=== PATIENT | female | born 1980 | race American Indian/Alaskan Native ===

== ENCOUNTER 2019-05-08 17:05 | Emergency (ER) | payer SELFPAY ==
[2019-05-08] MEDS ORDERED: methylPREDNISolone Sod Succinate 125 MG/2 ML INJ IV ONE (18:09)
[2019-05-08] MEDS ORDERED: SODIUM CHLORIDE 0.9% 1000 ML 1,000 ML IV ONE (18:09)
[2019-05-08] MEDS ORDERED: IPRATROPIUM 0.02% NEBU 2.5 ML IH ONE ×2 (18:09→20:31)
[2019-05-08] MEDS ORDERED: ALBUTEROL 2.5 MG/3 ML NEBU IH ONE ×2 (18:09→20:31)
[2019-05-08 18:39] LABS: Basophils # (Auto) 0.2 K/mm3 (0.0-0.1); Basophils % (Auto) 1.1 % (0.0-1.8); Eosinophils # (Auto) 1.4 K/mm3 (0.0-0.4); Eosinophils % (Auto) 10.5 % (0.0-4.3); Hemoglobin 12.9 gm/dl (10.1-14.3); Lymphocytes % (Auto) 14.9 % (13.4-35.0); Mean Corpuscular HGB Conc 32 % (30-34); Monocytes # (Auto) 0.9 K/mm3 (0.0-0.8); Monocytes % (Auto) 6.7 % (0.0-7.3); Platelet Count 304 K/mm3 (140-440); Red Blood Count 6.12 M/mm3 (3.65-5.03); Red Cell Distribution Width 19.2 % (13.2-15.2)
[2019-05-08 18:46] LABS: Mean Corpuscular Volume 67 fl (79-97)
[2019-05-08 18:49] LABS: BUN/Creatinine Ratio 12; Blood Urea Nitrogen 11 mg/dL (7-17); Calcium 9.2 mg/dL (8.4-10.2); Hemolysis Index 23
[2019-05-08] MEDS ORDERED: hydroCHLOROthiazide 25 MG TAB PO ONE (21:01)
[2019-05-08] MEDS ORDERED: amLODIPine 5 MG TAB PO ONE (21:01)
[2019-05-08] MEDS ORDERED: amLODIPine 10 MG TAB ONE (21:06)
--- NOTE | 2019-05-08 22:54 | Emergency Department Report ---
ED General Adult HPI - General Chief complaint: Syncope Stated complaint: FELIPE,SINUS PRESSURE AND FAINTED Time Seen by Provider: 05/08/19 17:44 Source: patient Mode of arrival: Ambulatory Limitations: No Limitations - History of Present Illness Initial comments: Patient is a 38] female who has had some increased cough the last week. Cough is nonproductive. Patient does have a history of asthma and hypertension. Patient states she ran out of her desonide but does not rub or how long she's been out of it. She has been taking albuterol nebs at home. Patient states that she was coughing so hard today she lost consciousness and hit her head. Patient states she has some minimal headache but has not had any unsteady gait problems speaking since. Patient denies fevers chills nausea vomiting sore throat or neck stiffness. Severity scale (0 -10): 1 - Related Data Previous Rx's Medication Instructions Recorded Last Taken Type ALBUTEROL NEB's [Proventil 0.083% 5 mg IH TID PRN #20 neb 05/08/19 Unknown Rx NEBS] Benzonatate [Tessalon Perles] 100 mg PO Q8HR #10 capsule 05/08/19 Unknown Rx Budesonide [Pulmicort Respules] 0.5 mg IH Q12HR #20 nebu 05/08/19 Unknown Rx Fluticasone [Flonase] 1 spray NS QDAY #1 bottle 05/08/19 Unknown Rx predniSONE [Deltasone] 20 mg PO QDAY #5 tab 05/08/19 Unknown Rx Allergies Allergy/AdvReac Type Severity Reaction Status Date / Time lisinopril Allergy Unknown Verified 05/08/19 17:10 ED Review of Systems ROS: Stated complaint: FELIPE,SINUS PRESSURE AND FAINTED Other details as noted in HPI Comment: All other systems reviewed and negative ED Past Medical Hx - Past Medical History Previous Medical History?: Yes Hx Hypertension: Yes Hx Asthma: Yes - Surgical History Past Surgical History?: Yes Additional Surgical History: x 1 - Social History Smoking Status: Never Smoker Substance Use Type: Alcohol - Medications Home Medications: Home Medications Medication Instructions Recorded Confirmed Last Taken Type ALBUTEROL NEB's [Proventil 0.083% 5 mg IH TID PRN #20 neb 05/08/19 Unknown Rx NEBS] Benzonatate [Tessalon Perles] 100 mg PO Q8HR #10 capsule 05/08/19 Unknown Rx Budesonide [Pulmicort Respules] 0.5 mg IH Q12HR #20 nebu 05/08/19 Unknown Rx Fluticasone [Flonase] 1 spray NS QDAY #1 bottle 05/08/19 Unknown Rx predniSONE [Deltasone] 20 mg PO QDAY #5 tab 05/08/19 Unknown Rx ED Physical Exam - General Limitations: No Limitations General appearance: alert, in no apparent distress - Head Head exam: Present: atraumatic, normocephalic - Eye Eye exam: Present: normal appearance, PERRL, EOMI - ENT ENT exam: Present: mucous membranes moist - Neck Neck exam: Present: normal inspection - Respiratory Respiratory exam: Present: respiratory distress, wheezes. Absent: normal lung sounds bilaterally, rales, rhonchi, stridor - Cardiovascular Cardiovascular Exam: Present: regular rate, normal rhythm, normal heart sounds. Absent: systolic murmur, diastolic murmur, rubs, gallop - GI/Abdominal GI/Abdominal exam: Present: soft, normal bowel sounds. Absent: distended, tenderness, guarding, rebound - Extremities Exam Extremities exam: Present: normal inspection - Back Exam Back exam: Present: normal inspection - Neurological Exam Neurological exam: Present: alert, oriented X3 - Psychiatric Psychiatric exam: Present: normal affect, normal mood - Skin Skin exam: Present: warm, dry, intact, normal color. Absent: rash ED Course Vital Signs 05/08/19 05/08/19 05/08/19 17:11 18:05 18:15 Temperature 98.1 F Pulse Rate 95 H 98 H 102 H Pulse Rate [ Bilateral] Respiratory 16 18 17 Rate Respiratory Rate [Bilateral ] Blood Pressure 221/125 178/103 Blood Pressure 193/113 [Right] O2 Sat by Pulse 97 97 96 Oximetry 05/08/19 05/08/19 05/08/19 18:30 18:45 19:00 Temperature Pulse Rate 98 H 91 H 87 Pulse Rate [ Bilateral] Respiratory 18 17 18 Rate Respiratory Rate [Bilateral ] Blood Pressure 183/111 196/123 193/118 Blood Pressure [Right] O2 Sat by Pulse 97 96 96 Oximetry 05/08/19 05/08/19 05/08/19 19:15 19:30 19:45 Temperature Pulse Rate 87 90 99 H Pulse Rate [ Bilateral] Respiratory 18 16 15 Rate Respiratory Rate [Bilateral ] Blood Pressure 186/115 182/121 185/119 Blood Pressure [Right] O2 Sat by Pulse 94 94 96 Oximetry 05/08/19 05/08/19 05/08/19 20:35 20:37 21:06 Temperature Pulse Rate 86 86 Pulse Rate [ 93 H Bilateral] Respiratory 15 Rate Respiratory 16 Rate [Bilateral ] Blood Pressure 182/105 Blood Pressure 182/105 [Right] O2 Sat by Pulse 100 Oximetry ED Medical Decision Making - Lab Data Result diagrams: 05/08/19 18:16 05/08/19 18:16 - Medical Decision Making Patient was given a prolonged hour-long neb treatment as well as as well as steroids and fluids. Patient's lungs did clear after the neb treatment. Patient's blood pressure was elevated but she forgot to take her blood pressure medicines this morning. Patient's given her daily dose of meds. Patient will have her inhaled steroid filled and the patient be discharged home. Critical care attestation.: If time is entered above; I have spent that time in minutes in the direct care of this critically ill patient, excluding procedure time. ED Disposition Clinical Impression: Hypertensive urgency, Post-tussive syncope, Minor closed head injury Asthma exacerbation Qualifiers: Asthma severity: moderate Asthma persistence: unspecified Qualified Code(s): J45.901 - Unspecified asthma with (acute) exacerbation Disposition: DC-01 TO HOME OR SELFCARE Is pt being admited?: No Does the pt Need Aspirin: No Condition: Stable Instructions: Asthma (ED), Syncope (ED) Referrals: PRIMARY CAREMD [Primary Care Provider] - 3-5 Days Time of Disposition: 22:58
[2019-05-08 23:00] VITALS: BP 166/98
== END 2019-05-08 23:21 | disposition home or self-care (01) ==
LOC: EDBD → ED 17:05
DX: S09.90XA Unspecified injury of head, initial encounter (principal); I16.0 Hypertensive urgency; I10 Essential (primary) hypertension; R55 Syncope and collapse; J45.901 Unspecified asthma with (acute) exacerbation; Z79.899 Other long term (current) drug therapy; Z88.8 Allergy status to other drugs, medicaments and biological substances; W22.8XXA Striking against or struck by other objects, initial encounter; Y93.89 Activity, other specified; Y92.89 Other specified places as the place of occurrence of the external cause; Y99.8 Other external cause status
CPT/HCPCS: 36415; 80048; 85025; 93005; 93010; 94644; 96361; 96374; 99284; J2930; J7030